=== PATIENT | female | born 1950 | race Caucasian/White ===

== ENCOUNTER 2018-03-11 09:04 | Emergency (ER) | payer OTHER ==
[~2018-03-11] VITALS: Ht 160 cm; Wt 79.3 kg
[~2018-03-11 09:04] MED LIST: ATARAX,VISTARIL25 MG PO; AUGMENTIN875 MG PO; Aspirin E.C. PO; CARVEDILOL6.25 MG PO; CIPRO500 MG PO; COLACE100 MG PO; COREG25 M1 PO; Coreg PO; FOSAMAX70 MG PO; FUROSEMIDE20 MG PO; LISINOPRIL10 MG PO; LISINOPRIL2.5 MG PO; LISINOPRIL5 MG PO; Lasix PO; METFORMIN HCL500 MG PO; MOTRIN600 MG PO; NAPROSYN375 MG PO; PERCOCET 5/31 TABLET PO; PREDNISONE10 MG PO; PRINIVIL20 MG PO; SIMVASTATIN20 MG PO; SPIRONOLACTONE50 MG PO; ST. JOSEPH ASPI81 MG PO; Ultram PO; Zestril,Prinivil PO
[2018-03-11 09:40] LABS: BASOPHIL (%) 0.3 % (0-1); EOSINOPHIL (%) 2.1 % (0-5); EOSINOPHIL COUNT 0.2 K/uL (0-0.3); HEMATOCRIT 38.8 % (36.0-46.0); HEMOGLOBIN 13.3 G/DL (11.9-15.5); IMMATURE GRANULOCYTE (%) 0.3 % (0.0-0.7); LYMPHOCYTE (%) 15.6 % (15-42); LYMPHOCYTE COUNT 1.2 K/uL (1.0-2.8); MCH 32.4 PG (29.0-34.0); MCHC 34.3 G/DL (30.0-36.0); MCV 94.6 FL (83-99); MONOCYTE (%) 6.4 % (3-12); MONOCYTE COUNT 0.5 K/uL (0-0.8); NEUTROPHIL (%) 75.3 % (45-76); PLATELET COUNT 236 K/uL (156-360); RBC DIS.WIDTH-CV 12.2 % (11.8-14.6); RBC DIS.WIDTH-SD 42.5 % (39-53)
[2018-03-11 09:50] LABS: ALBUMIN 3.9 g/dL (3.2-4.8)
[2018-03-11 09:51] LABS: CHLORIDE 102 mEq/L (99-109); POTASSIUM 4.5 mEq/L (3.7-5.4); SODIUM 136 mEq/L (136-147)
[2018-03-11 09:53] LABS: GLUCOSE 149 mg/dL (70-99); TOTAL PROTEIN 6.5 g/dL (6.4-8.3)
[2018-03-11 09:55] LABS: TOTAL BILIRUBIN 0.7 mg/dL (0.0-1.0)
[2018-03-11 09:56] LABS: ALKALINE PHOSPHATASE 106 IU/L (3-129)
[2018-03-11 09:57] LABS: CREATININE 1.2 mg/dL (0.6-1.3); GFR ESTIMATE (CALCULATED) 47 mL/min/
[2018-03-11 09:57] LABS: APPEARANCE CLEAR ((CLEAR)); BILIRUBIN NEGATIVE; BLOOD NEGATIVE; COLOR COLORLESS ((YELLOW)); GLUCOSE (STRIP) NEGATIVE; KETONES NEGATIVE; LEUKOCYTES NEGATIVE; NITRITE NEGATIVE; PROTEIN (STRIP) NEGATIVE; SPECIFIC GRAVITY 1.002 (1.000-1.030); UCUL ADDED? NO; UROBILINOGEN 0.2 MG/DL (0.2-1.0)
[2018-03-11 09:58] LABS: AST (GOT) 10 IU/L (2-34); UREA NITROGEN (BUN) 19 mg/dL (9-23)
[2018-03-11 10:00] LABS: ALT (GPT) 8 IU/L (3-49)
[2018-03-11 10:01] LABS: TROP-I INTERPRETATION NEGATIVE; TROPONIN-I < 0.01 ng/mL (0.0-0.30)
[2018-03-11 13:27] VITALS: BP 112/73
== END 2018-03-11 13:29 | disposition home or self-care (01) ==
LOC: EME 09:04
PROVIDERS: Emergency Medicine
DX: E86.0 Dehydration (principal); E11.65 Type 2 diabetes mellitus with hyperglycemia; R53.1 Weakness; I11.0 Hypertensive heart disease with heart failure; I50.9 Heart failure, unspecified; F41.9 Anxiety disorder, unspecified; Z79.82 Long term (current) use of aspirin; Z91.041 Radiographic dye allergy status
CPT/HCPCS: 71046; 80053; 81003; 82948; 84484; 85025; 93005; 99281; 99284; J7030